=== PATIENT | female | born 1940 | race Caucasian/White ===

== ENCOUNTER 2018-05-01 08:50 | Day surgery (SDC) | payer MEDICARE, OTHER ==
[~2018-05-01 08:50] MED LIST: Sodium Chloride 0.9% 10 ML Syringe FLUSH PRN
[2018-05-01] MEDS: Lactated Ringers 1,000 ML IV SCH (10:04)
[2018-05-01] MEDS ORDERED: Propofol 200 MG/20 ML SDV ONE ×3 (10:33→11:33)
[2018-05-01] MEDS ORDERED: Midazolam 1 MG/ML 2 ML SDV ONE ×2 (10:33→10:34)
[2018-05-01] MEDS ORDERED: fentaNYL 100 MCG/2 ML SDV ONE ×2 (10:33→10:34)
--- NOTE | 2018-05-01 10:37 | PCM.PN ---
- General Info Date of Service: 05/01/18 - Review of Systems Systems Review Comment:: 77-year-old female comes today for colonoscopy.She says her last colonoscopy was about 15 years ago. She denies any recent rectal bleeding or change in bowel habits. She does admit that her mother had colon polyps.The patient is medically stable to proceed today. Her recent history and physical is reviewed and there is no significant changes. I discussed the proposed colonoscopy with the patient. Risks such as but not limited to bleeding and GI injury reviewed. She appears to understand and agrees to proceed. - Patient Data Vitals - Most Recent: Last Vital Signs Temp 96.2 F 05/01/18 10:03 Pulse 83 05/01/18 10:03 Resp 18 05/01/18 10:03 BP 130/64 05/01/18 10:03 Pulse Ox 100 05/01/18 10:03 Weight - Most Recent: 95.254 kg Med Orders - Current: Current Medications Lactated Ringer's (Ringers, Lactated) 1,000 mls @ 125 mls/hr IV ASDIRECTED TUAN Last Admin: 05/01/18 10:04 Dose: 125 mls/hr Sodium Chloride (Saline Flush) 10 ml FLUSH ASDIRECTED PRN PRN Reason: Keep Vein Open - Problem List Review Problem List Initiated/Reviewed/Updated: Yes - Assessment Assessment:: colon cancer screening - Plan Plan:: Colonoscopy
--- NOTE | 2018-05-01 11:34 | PCM.OPNOTE ---
- General Post-Op/Procedure Note Date of Surgery/Procedure: 05/01/18 Operative Procedure(s): Colonoscopy Findings: Moderate Sigmoid Diverticulosis Tortuous Colon Pre Op Diagnosis: Colon Cancer Screening Post-Op Diagnosis: Diverticulosis Anesthesia Technique: MAC Primary Surgeon: Elan Disla Pathology: none Output, Urine Amount: 0 EBL in mLs: 0 Complications: None Condition: Good
--- NOTE | 2018-05-01 14:08 | OR ---
Date of Procedure: 05/01/2018 PREOPERATIVE DIAGNOSIS: Colon cancer screening. POSTOPERATIVE DIAGNOSIS: Diverticulosis. OPERATIONS PERFORMED: Colonoscopy. INDICATIONS FOR SURGERY: This 77-year-old female comes for a screening colonoscopy. It has been many years since her last colon exam. FINDINGS: The patient has a [id number] degree of sigmoid diverticulosis. This does not appear acutely inflamed or otherwise complicated. The patient's colon was otherwise tortuous, but normal. DESCRIPTION OF PROCEDURE: The patient was taken to the operating room. She was given intravenous sedation, and with her in the left lateral decubitus position, digital rectal exam was performed showing no rectal masses. The Olympus colonoscope was inserted into the rectum. Retroflexed examination of the rectal canal was performed. The scope was then carefully advanced under direct visualization through the entire length of the colon until the cecum was reached. This was somewhat difficult because of the tortuosity of the colon and it did require hand pressure and placing the patient in the supine position, but eventually the cecum was able to be entered and fully examined. The appendiceal orifice and ileocecal valve were identified. The light was also noted to transilluminate the abdominal wall in the right lower quadrant. After examining the cecum, the scope was slowly withdrawn sequentially re-examining the colonic segments until the entire colon and rectum had been fully examined. The scope was removed and the patient was taken from the operating room in satisfactory condition. ESTIMATED BLOOD LOSS: Zero. COMPLICATIONS: None. PROGNOSIS: Good. ANALY Disla MD /[id number]
== END 2018-05-01 12:47 | disposition home or self-care (01) ==
LOC: LL.SDS 08:50
PROVIDERS: ATTEND Surgery
DX: Z12.11 Encounter for screening for malignant neoplasm of colon (principal); K57.30 Diverticulosis of large intestine without perforation or abscess without bleeding; K59.00 Constipation, unspecified; I10 Essential (primary) hypertension; F32.9 Major depressive disorder, single episode, unspecified; E78.5 Hyperlipidemia, unspecified; E55.9 Vitamin D deficiency, unspecified; Z79.899 Other long term (current) drug therapy; Z88.5 Allergy status to narcotic agent
CPT/HCPCS: J2250; J2704; J3010; J7120

== ENCOUNTER 2021-02-02 11:33 | Day surgery (SDC) | payer MEDICARE, OTHER ==
[~2021-02-02 11:33] MED LIST changes: +Lactated Ringers 1,000 ML IV SCH; +Propofol 200 MG/20 ML SDV ONE
--- NOTE | 2021-02-02 12:35 | PCM.PN ---
- General Info Date of Service: 02/02/21 - Review of Systems Systems Review Comment:: 80-year-old female referred for EGD. She does have a history of GERD-like symptoms and has a known history of eosinophilic esophagitis noted on previous EGD. She is medically stable to proceed with an EGD today I have discussed the proposed EGD with the patient reviewed with her indications and risks and she agrees to proceed. Her recent history and physical is reviewed and no significant changes are noted. - Patient Data Vitals - Most Recent: Last Vital Signs Temp 98.1 F 02/02/21 12:09 Pulse 71 02/02/21 12:09 Resp 18 02/02/21 12:09 BP 149/79 H 02/02/21 12:09 Pulse Ox 96 02/02/21 12:09 Weight - Most Recent: 96.615 kg Med Orders - Current: Current Medications Lactated Ringer's (Ringers, Lactated) 1,000 mls @ 125 mls/hr IV ASDIRECTED TUAN Last Admin: 02/02/21 12:06 Dose: 125 mls/hr Documented by: Sodium Chloride (Sodium Chloride 0.9% 10 Ml Syringe) 10 ml FLUSH ASDIRECTED PRN PRN Reason: Keep Vein Open Discontinued Medications Propofol (Propofol 200 Mg/20 Ml Sdv) Confirm Administered Dose 400 mg .ROUTE .STK-MED ONE Stop: 02/02/21 08:42 Sepsis Event Note - Focused Exam Vital Signs: Vital Signs Temp Pulse Resp BP Pulse Ox 02/02/21 12:09 98.1 F 71 18 149/79 H 96 - Problem List Review Problem List Initiated/Reviewed/Updated: Yes - Assessment Assessment:: GERD - Plan Plan:: EGD
[2021-02-02] MEDS ORDERED: Glycopyrrolate 0.2 MG/ML SDV ONE (12:37)
[2021-02-02] MEDS ORDERED: Propofol 200 MG/20 ML SDV ONE (12:37)
[2021-02-02] MEDS ORDERED: Lidocaine 2% 5 ML SDV ONE (12:37)
--- NOTE | 2021-02-02 13:04 | PCM.OPNOTE ---
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 Mckinney's Esophagus Anesthesia Technique: MAC Primary Surgeon: Elan Disla Pathology: biopsies of gastric antrum and esophagus EBL in mLs: 5 Complications: None Condition: Good
--- NOTE | 2021-02-02 13:53 | OR ---
Date of Procedure: 02/02/2021 PREOPERATIVE DIAGNOSIS: Gastroesophageal reflux disease. POSTOPERATIVE DIAGNOSES: 1. Long-segment Mckinney esophagus. 2. Hiatal hernia. OPERATION PERFORMED: Esophagogastroduodenoscopy with biopsy. INDICATIONS FOR SURGERY: This 80-year-old female has been having GERD-like symptoms. She has had a previous EGD but is referred for this exam again because of continued symptoms. FINDINGS: In the distal esophagus, the patient has visible signs of inflammation and mucosal changes consistent with Mckinney's esophagus of approximately 6 cm in length extending from the GE junction, which was estimated to be at 37 cm from the incisors to approximately 31 cm from the incisors. There was some acute inflammation and exudate, although no ulceration or stricturing noted in this area. The more proximal esophagus appeared normal. The patient also has a small to medium-sized hiatal hernia. The gastric mucosa and duodenum otherwise appear normal. DESCRIPTION OF PROCEDURE: The patient was taken to the operating room. She was given intravenous sedation, and with her in the left lateral decubitus position, the Olympus gastroscope was advanced through mouth guard into the oral cavity. Under direct visualization, the scope was advanced through the oropharynx and then down through the esophagus, stomach, and into the duodenum, where examination to the third portion was performed. After examining the duodenum, the scope was withdrawn back into the stomach where full examination including retroflexed examination of the fundus was performed. Random biopsies of the antrum were taken to rule out H. pylori. The GE junction and distal esophagus were then carefully examined. With findings consistent with a long-segment Mckinney esophagus, biopsies were taken of this area at multiple levels to rule out dysplasia. After this had been completed, the exam was finished and the scope was removed. The patient was then taken from the operating room in satisfactory condition. ESTIMATED BLOOD LOSS: 5 mL. COMPLICATIONS: None. PROGNOSIS: Good. ANALY Disla MD /[id number]
== END 2021-02-02 14:09 | disposition home or self-care (01) ==
LOC: LL.SDS 11:33
PROVIDERS: ATTEND Surgery
DX: K29.50 Unspecified chronic gastritis without bleeding (principal); K21.00 Gastro-esophageal reflux disease with esophagitis, without bleeding; K22.10 Ulcer of esophagus without bleeding; K22.70 Barrett's esophagus without dysplasia; K44.9 Diaphragmatic hernia without obstruction or gangrene; I10 Essential (primary) hypertension; E78.2 Mixed hyperlipidemia; J44.9 Chronic obstructive pulmonary disease, unspecified; R35.0 Frequency of micturition; R35.1 Nocturia; Z01.812 Encounter for preprocedural laboratory examination; Z20.822 Contact with and (suspected) exposure to COVID-19; Z79.899 Other long term (current) drug therapy; Z88.8 Allergy status to other drugs, medicaments and biological substances; Z88.5 Allergy status to narcotic agent; E66.9 Obesity, unspecified; Z98.890 Other specified postprocedural states
CPT/HCPCS: 00731; 88305; 88342; J2704; J3490; J7120; U0002

== ENCOUNTER 2021-05-10 06:41 | Emergency (ER) | payer MEDICARE, OTHER ==
[2021-05-10] MEDS ORDERED: Sodium Chloride 0.9% 10 ML Syringe FLUSH PRN (07:11)
[2021-05-10] MEDS ORDERED: Diphtheria,Pertussis(Acell),Tetanus Vaccine 0.5 ML Syringe IM ONE (07:12)
--- NOTE | 2021-05-10 07:24 | EDM.PDOC ---
ED HPI GENERAL MEDICAL PROBLEM - General Chief Complaint: Laceration Stated Complaint: left knee laceration Time Seen by Provider: 05/10/21 06:55 Source of Information: Reports: Patient, RN, RN Notes Reviewed History Limitations: Reports: No Limitations - History of Present Illness INITIAL COMMENTS - FREE TEXT/NARRATIVE: Pt. presents to ER with complaints of injury to L knee. Pt. states that she was walking her dog when she fell, landing on her knee on a metal grate. Pt. states that she did not strike her head. She is not currently on any blood thinners. Pt. states that she is not experiencing any neck pain. It was a mechanical fall; she denies having any chest pain, shortness of breath, lightheadedness, or palpitation prior to the fall. Pt. is able to bear weight on the extremity. She was able to get up off the ground, walk home, and she drove herself to the ER. She states that she noticed some "spurting" from the injury when she was exploring it. - Related Data Allergies Allergy/AdvReac Type Severity Reaction Status Date / Time hydrocodone Allergy UNKNOWN Verified 02/02/21 11:57 hydromorphone [From Dilaudid] Allergy UNKNOWN Verified 02/02/21 11:57 hydroxyzine Allergy Nausea Verified 02/02/21 11:57 Home Meds: Home Meds Melatonin 3 mg PO BEDTIME PRN 05/01/18 [History] atorvaSTATin [Lipitor] 40 mg PO Q2D 05/01/18 [History] Cholecalciferol (Vitamin D3) [Vitamin D3] 5,000 unit PO DAILY 02/01/21 [History] Ibuprofen 200 mg PO Q6H PRN 02/01/21 [History] Magnesium Oxide [Magnesium] 500 mg PO DAILY 02/01/21 [History] Risedronate Sodium [Actonel] 35 mg PO WEEKLY 02/02/21 [History] Multivitamin with Minerals [Multiple Vitamin] 1 tab PO DAILY 05/10/21 [History] Venlafaxine [Effexor XR] 150 mg PO DAILY 05/10/21 [History] lisinopriL [Lisinopril] 40 mg PO DAILY 05/10/21 [History] Past Medical History HEENT History: Reports: Cataract 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 Cardiovascular History: Reports: High Cholesterol, Hypertension Respiratory History: Reports: None Gastrointestinal History: Reports: Colon Polyp Other Gastrointestinal History: eosinophilic esophagitis Musculoskeletal History: Reports: None Other Musculoskeletal History: osteopenia Neurological History: Reports: None Psychiatric History: Reports: Anxiety, Depression Endocrine/Metabolic History: Reports: Vitamin D Deficiency Other Endocrine/Metabolic History: dysthymic disorder Hematologic History: Reports: None Immunologic History: Reports: None Oncologic (Cancer) History: Reports: None Dermatologic History: Reports: None Other Dermatologic History: shingles - Infectious Disease History Infectious Disease History: Reports: Shingles - Past Surgical History GI Surgical History: Reports: Colonoscopy, EGD Female Surgical History: Reports: Hysterectomy, Other (See Below) Other Female Surgeries/Procedures: Bladder reattachment surgery Social & Family History - Tobacco Use Tobacco Use Status *Q: Never Tobacco User Second Hand Smoke Exposure: No - Caffeine Use Caffeine Use: Reports: Coffee - Recreational Drug Use Recreational Drug Use: No ED ROS GENERAL - Review of Systems Review Of Systems: Comprehensive ROS is negative, except as noted in HPI. ED EXAM, SKIN/RASH Exam: See Below Exam Limited By: No Limitations General Appearance: Alert, WD/WN, No Apparent Distress Eye Exam: Bilateral Eye: EOMI, PERRL Head: Atraumatic, Normocephalic Neck: Normal Inspection, Supple, Non-Tender, Full Range of Motion Extremities: Normal Range of Motion, No Pedal Edema, Normal Capillary Refill, Other (Approx. 9 cm total length laceration to L anteriolateral knee. The laceration starts shallow on the medial portion of the the injury and extends very deeply toward the deeper structures of the knee forming a pocket that extends inferiorly into lower leg.). No: Mottled, Pallor Neurological: Alert, Oriented, CN II-XII Intact, Normal Cognition, Normal Reflexes, No Motor/Sensory Deficits Psychiatric: Normal Affect, Normal Mood Skin: Warm, Dry, Intact, Normal Color, No Rash Course - Vital Signs Last Recorded V/S: Last Vital Signs Temp 36.8 C 05/10/21 06:43 Pulse 81 05/10/21 07:14 Resp 16 05/10/21 07:14 BP 154/89 H 05/10/21 07:14 Pulse Ox 98 05/10/21 07:14 - Orders/Labs/Meds Orders: Active Orders 24 hr Category Date Time Status Peripheral IV Care [RC] . DIRECTED Care 05/10/21 07:11 Ordered Vaccines to be Administered [RC] PER UNIT ROUTINE Care 05/10/21 07:12 Ordered Knee 3V Lt [CR] Stat Exams 05/10/21 07:10 Ordered Sodium Chloride 0.9% [Saline Flush] Med 05/10/21 07:11 Ordered 10 ml FLUSH ASDIRECTED PRN Peripheral IV Insertion Adult [OM.PC] Routine Oth 05/10/21 07:11 Ordered Medication Orders Sodium Chloride (Sodium Chloride 0.9% 10 Ml Syringe) 10 ml FLUSH ASDIRECTED PRN PRN Reason: Keep Vein Open Meds: Medications Generic Name Dose Route Start Last Admin Trade Name Freq PRN Reason Stop Dose Admin Sodium Chloride 10 ml 05/10/21 07:11 Sodium Chloride 0.9% 10 Ml Syringe FLUSH ASDIRECTED PRN Keep Vein Open Discontinued Medications Generic Name Dose Route Start Last Admin Trade Name Freq PRN Reason Stop Dose Admin Cefazolin Sodium 1 gm 05/10/21 07:38 Cefazolin 1 Gm Vial IVPUSH 05/10/21 07:39 ONETIME ONE Diphtheria/Tetanus/Acell Pertussis 0.5 ml 05/10/21 07:12 05/10/21 07:24 Diphtheria,Pertussis(Acell),Tetanus Vaccine 0.5 Ml Syringe IM 05/10/21 07:13 0.5 ml .ONCE ONE Administration Lidocaine HCl 15 ml 05/10/21 06:58 05/10/21 07:03 Lidocaine 1% 5 Ml Sdv INJECT 05/10/21 06:59 15 ml ONETIME ONE Administration - Radiology Interpretation Free Text/Narrative:: No obvious deformity noted on 3 view knee radiographs Departure - Departure Time of Disposition: 07:40 Disposition: Home, Self-Care 01 Clinical Impression: Laceration - Discharge Information Referrals: Rekha Peña NP [Primary Care Provider] - Forms: ED Department Discharge Sepsis Event Note (ED) - Evaluation Sepsis Screening Result: No Definite Risk - Focused Exam Vital Signs: Vital Signs Temp Pulse Resp BP Pulse Ox 05/10/21 07:14 81 16 154/89 H 98 05/10/21 06:43 36.8 C 86 16 157/78 H 99 - Problem List Review Problem List Initiated/Reviewed/Updated: Yes - My Orders Last 24 Hours: My Active Orders 05/10/21 07:10 Knee 3V Lt [CR] Stat 05/10/21 07:11 Peripheral IV Care [RC] . DIRECTED Sodium Chloride 0.9% [Saline Flush] 10 ml FLUSH ASDIRECTED PRN Peripheral IV Insertion Adult [OM.PC] Routine 05/10/21 07:12 Vaccines to be Administered [RC] PER UNIT ROUTINE - Assessment/Plan Last 24 Hours: My Active Orders 05/10/21 07:10 Knee 3V Lt [CR] Stat 05/10/21 07:11 Peripheral IV Care [RC] . DIRECTED Sodium Chloride 0.9% [Saline Flush] 10 ml FLUSH ASDIRECTED PRN Peripheral IV Insertion Adult [OM.PC] Routine 05/10/21 07:12 Vaccines to be Administered [RC] PER UNIT ROUTINE Plan: The laceration was explored. It is complex and will need a washout. This facility does not have surgical capability. [facility] call was contacted. Pt. was accepted by Dr. Nagel in ER. IV started. Pt. was given a gram of ancef IV. Tetanus was updated. Moist dressing applied for transport. Pt. will be transported by daughter. All questions were answered.
[2021-05-10] MEDS ORDERED: ceFAZolin 1 GM Vial IVPUSH ONE (07:38)
== END 2021-05-10 08:05 | disposition home or self-care (01) ==
LOC: LL.ED 06:41
DX: S81.012A Laceration without foreign body, left knee, initial encounter (principal); E78.00 Pure hypercholesterolemia, unspecified; I10 Essential (primary) hypertension; Z79.899 Other long term (current) drug therapy; Z88.5 Allergy status to narcotic agent; Z23 Encounter for immunization; W18.39XA Other fall on same level, initial encounter; W26.8XXA Contact with other sharp object(s), not elsewhere classified, initial encounter
CPT/HCPCS: 73562-LT; 90471; 90715; 96374; 99284-25; J0690

== ENCOUNTER 2021-09-09 08:38 | Emergency (ER) | payer MEDICARE, OTHER ==
--- NOTE | 2021-09-09 09:42 | EDM.PDOC ---
ED HPI GENERAL MEDICAL PROBLEM - General Chief Complaint: Respiratory Problem Stated Complaint: Cough Time Seen by Provider: 09/09/21 08:50 Source of Information: Reports: Patient History Limitations: Reports: No Limitations - History of Present Illness INITIAL COMMENTS - FREE TEXT/NARRATIVE: 6 day history of not feeling well. Started initially as dry cough. Over next 24-48 hours developed sinus congestion, sore throat. No unusual sputum production. No fevers. No GI changes. Denies ear pain/PORTILLO. No body aches. Has decreased appetite. Negative Covid test earlier this week. Symptoms are all chest/sinus/throat in nature. - Related Data Allergies Allergy/AdvReac Type Severity Reaction Status Date / Time hydrocodone Allergy UNKNOWN Verified 02/02/21 11:57 hydromorphone [From Dilaudid] Allergy UNKNOWN Verified 02/02/21 11:57 hydroxyzine Allergy Nausea Verified 02/02/21 11:57 Home Meds: Home Meds Melatonin 3 mg PO BEDTIME PRN 05/01/18 [History] atorvaSTATin [Lipitor] 40 mg PO Q2D 05/01/18 [History] Cholecalciferol (Vitamin D3) [Vitamin D3] 5,000 unit PO DAILY 02/01/21 [History] Ibuprofen 200 mg PO Q6H PRN 02/01/21 [History] Magnesium Oxide [Magnesium] 500 mg PO DAILY 02/01/21 [History] Risedronate Sodium [Actonel] 35 mg PO WEEKLY 02/02/21 [History] Multivitamin with Minerals [Multiple Vitamin] 1 tab PO DAILY 05/10/21 [History] Venlafaxine [Effexor XR] 150 mg PO DAILY 05/10/21 [History] lisinopriL [Lisinopril] 40 mg PO DAILY 05/10/21 [History] predniSONE [Prednisone] 20 mg PO DAILY #5 tablet 09/09/21 [Rx] Past Medical History HEENT History: Reports: Cataract 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 Cardiovascular History: Reports: High Cholesterol, Hypertension Respiratory History: Reports: None Gastrointestinal History: Reports: Colon Polyp Other Gastrointestinal History: eosinophilic esophagitis Musculoskeletal History: Reports: None Other Musculoskeletal History: osteopenia Neurological History: Reports: None Psychiatric History: Reports: Anxiety, Depression Endocrine/Metabolic History: Reports: Vitamin D Deficiency Other Endocrine/Metabolic History: dysthymic disorder Hematologic History: Reports: None Immunologic History: Reports: None Oncologic (Cancer) History: Reports: None Dermatologic History: Reports: None Other Dermatologic History: shingles - Infectious Disease History Infectious Disease History: Reports: Shingles - Past Surgical History GI Surgical History: Reports: Colonoscopy, EGD Female Surgical History: Reports: Hysterectomy, Other (See Below) Other Female Surgeries/Procedures: Bladder reattachment surgery Social & Family History - Caffeine Use Caffeine Use: Reports: Coffee ED ROS GENERAL - Review of Systems Review Of Systems: See Below Constitutional: Reports: Malaise, Decreased Appetite. Denies: Fever, Chills, Night Sweats, Diaphoresis HEENT: Reports: Rhinitis, Sinus Problem, Throat Pain. Denies: Ear Pain, Vision Change Respiratory: Reports: Shortness of Breath, Cough. Denies: Wheezing, Pleuritic Chest Pain, Sputum, Hemoptysis Cardiovascular: Reports: No Symptoms Endocrine: Reports: No Symptoms GI/Abdominal: Reports: No Symptoms : Reports: No Symptoms Musculoskeletal: Reports: Other (no acute changes from baseline) Skin: Reports: No Symptoms Neurological: Reports: No Symptoms Psychiatric: Reports: No Symptoms Hematologic/Lymphatic: Reports: No Symptoms ED EXAM, GENERAL - Physical Exam Exam: See Below Exam Limited By: No Limitations General Appearance: Alert, WD/WN, No Apparent Distress Eye Exam: Bilateral Eye: EOMI, PERRL Ears: Normal External Exam, Normal Canal, Hearing Grossly Normal Nose: Normal Inspection Throat/Mouth: Normal Inspection, Normal Lips, Normal Oropharynx, Normal Voice, No Airway Compromise Head: Atraumatic, Normocephalic Neck: Supple, Non-Tender, Full Range of Motion Respiratory/Chest: No Respiratory Distress, Lungs Clear, Normal Breath Sounds, No Accessory Muscle Use Cardiovascular: Normal Peripheral Pulses, No Murmur, Tachycardia GI/Abdominal: Normal Bowel Sounds, Soft, Non-Tender, No Distention (Female) Exam: Deferred Rectal (Female) Exam: Deferred Back Exam: Normal Inspection. No: CVA Tenderness (L), CVA Tenderness (R), Muscle Spasm, Paraspinal Tenderness, Vertebral Tenderness Extremities: Normal Inspection, Normal Capillary Refill Neurological: Alert, Oriented, CN II-XII Intact, Normal Cognition, Normal Gait, No Motor/Sensory Deficits Psychiatric: Normal Affect, Normal Mood Skin Exam: Warm, Dry, Intact, Normal Color Course - Vital Signs Last Recorded V/S: Last Vital Signs Temp 37.2 C 09/09/21 09:00 Pulse 108 H 09/09/21 09:00 Resp 16 09/09/21 09:00 BP 154/74 H 09/09/21 09:00 Pulse Ox 98 09/09/21 09:00 - Orders/Labs/Meds Orders: Active Orders 24 hr Category Date Time Status Chest 2V [CR] Stat Exams 09/09/21 09:29 Taken CULTURE STREP A CONFIRMATION [RM] Stat Lab 09/09/21 09:20 Results STREP SCRN A RAPID W CULT CONF [RM] Stat Lab 09/09/21 09:20 Results UA W/MICROSCOPIC [URIN] Stat Lab 09/09/21 09:28 Ordered Sodium Chloride 0.9% [Saline Flush] Med 09/09/21 11:35 Active 10 ml FLUSH ASDIRECTED PRN Isolation [COMM] Routine Oth 09/09/21 08:43 Active Isolation [COMM] Routine Oth 09/09/21 09:48 Active Medication Orders Sodium Chloride (Sodium Chloride 0.9% 10 Ml Syringe) 10 ml FLUSH ASDIRECTED PRN PRN Reason: Keep Vein Open Last Admin: 09/09/21 11:35 Dose: 10 ml Documented by: Labs: Laboratory Tests 09/09/21 09/09/21 09/09/21 Range/Units 08:40 09:22 09:40 WBC 6.3 (4.0-10.2) K/uL RBC 4.51 (3.77-5.09) M/uL Hgb 13.7 (11.7-15.5) g/dL Hct 42.8 (34.0-46.0) % MCV 94.9 (84.0-98.0) fL MCH 30.4 (28.2-33.3) pg MCHC 32.0 (31.7-36.0) g/dL RDW 13.7 (11.2-14.1) % Plt Count 324 (150-350) K/uL Neut % (Auto) 76.7 (45.0-80.0) % Lymph % (Auto) 10.4 (10.0-50.0) % [place] % (Auto) 10.4 (2.0-14.0) % Eos % (Auto) 2.2 (0.0-5.0) % Baso % (Auto) 0.3 (0.0-2.0) % Neut # (Auto) 4.86 (1.40-7.00) K/uL Lymph # (Auto) 0.66 (0.50-3.50) K/uL [place] # (Auto) 0.66 (0.00-1.00) K/uL Eos # (Auto) 0.14 (0.00-0.50) K/uL Baso # (Auto) 0.02 (0.00-0.20) K/uL D-Dimer, Quantitative (0-400) ng/mL Sodium (136-145) mmol/L Potassium (3.5-5.1) mmol/L Chloride (98-107) mmol/L Carbon Dioxide (21.0-32.0) mmol/L Anion Gap (7-15) meq/L BUN (7-18) mg/dL Creatinine (0.51-1.17) mg/dL Est Cr Clr Drug Dosing Estimated GFR (MDRD) mL/min Glucose (70-99) mg/dL Lactic Acid (0.4-2.0) mmol/L Calcium (8.5-10.1) mg/dL Magnesium (1.8-2.4) mg/dL Total Bilirubin (0.2-1.0) mg/dL AST (15-37) U/L ALT (12-78) U/L Alkaline Phosphatase (46-116) IU/L NT-Pro-B Natriuret Pep (0-125) pg/mL Total Protein (6.4-8.2) g/dL Albumin (3.4-5.0) g/dL SARS-CoV-2 RNA (KRISTEL) Negative (NEGATIVE) SARS-CoV-2 Ag (Rapid) Negative (NEGATIVE) 09/09/21 09/09/21 09/09/21 Range/Units 09:40 09:40 09:40 WBC (4.0-10.2) K/uL RBC (3.77-5.09) M/uL Hgb (11.7-15.5) g/dL Hct (34.0-46.0) % MCV (84.0-98.0) fL MCH (28.2-33.3) pg MCHC (31.7-36.0) g/dL RDW (11.2-14.1) % Plt Count (150-350) K/uL Neut % (Auto) (45.0-80.0) % Lymph % (Auto) (10.0-50.0) % [place] % (Auto) (2.0-14.0) % Eos % (Auto) (0.0-5.0) % Baso % (Auto) (0.0-2.0) % Neut # (Auto) (1.40-7.00) K/uL Lymph # (Auto) (0.50-3.50) K/uL [place] # (Auto) (0.00-1.00) K/uL Eos # (Auto) (0.00-0.50) K/uL Baso # (Auto) (0.00-0.20) K/uL D-Dimer, Quantitative 328 (0-400) ng/mL Sodium 142 (136-145) mmol/L Potassium 4.1 (3.5-5.1) mmol/L Chloride 108 H (98-107) mmol/L Carbon Dioxide 23.6 (21.0-32.0) mmol/L Anion Gap 14.5 (7-15) meq/L BUN 13 (7-18) mg/dL Creatinine 0.79 (0.51-1.17) mg/dL Est Cr Clr Drug Dosing TNP Estimated GFR (MDRD) > 60 mL/min Glucose 108 H (70-99) mg/dL Lactic Acid 1.2 (0.4-2.0) mmol/L Calcium 8.9 (8.5-10.1) mg/dL Magnesium 2.1 (1.8-2.4) mg/dL Total Bilirubin 0.2 (0.2-1.0) mg/dL AST 18 (15-37) U/L ALT 35 (12-78) U/L Alkaline Phosphatase 61 (46-116) IU/L NT-Pro-B Natriuret Pep 311 H (0-125) pg/mL Total Protein 7.1 (6.4-8.2) g/dL Albumin 3.6 (3.4-5.0) g/dL SARS-CoV-2 RNA (KRISTEL) (NEGATIVE) SARS-CoV-2 Ag (Rapid) (NEGATIVE) Meds: Medications Generic Name Dose Route Start Last Admin Trade Name Chuck PRN Reason Stop Dose Admin Sodium Chloride 10 ml 09/09/21 11:35 09/09/21 11:35 Sodium Chloride 0.9% 10 Ml Syringe FLUSH 10 ml ASDIRECTED PRN Administration Keep Vein Open Discontinued Medications Generic Name Dose Route Start Last Admin Trade Name Chuck PRN Reason Stop Dose Admin Sodium Chloride 500 mls @ 500 mls/hr 09/09/21 09:45 09/09/21 10:02 Normal Saline IV 500 mls/hr .BOLUS TUAN Administration Methylprednisolone Sodium Succinate 125 mg 09/09/21 11:30 09/09/21 11:34 Methylprednisolone Sodium Succinate 125 Mg/2 Ml Sdv IVPUSH 09/09/21 11:31 125 mg ONETIME ONE Administration - Re-Assessments/Exams Free Text/Narrative Re-Assessment/Exam: 09/09/21 09:43 Covid/Influenza negative. Chest xray/labs/rapid strep added. Mildly tachycardic. 500ml NS ordered. 09/09/21 11:34 Chest xray showed no acute infiltrate. Labs overall unremarkable except for positive RSV. RSV results reviewed with patient. She has nebulizer at home for PRN use. Will give single dose of Solu-medrol in ER. Take home box of Albuterol Nebs. Precautions reviewed. To follow up as needed PRN worsening symptoms. Patient agreeable with plan. Departure - Departure Time of Disposition: 11:37 Disposition: Home, Self-Care 01 Condition: Good Clinical Impression: RSV (respiratory syncytial virus infection) - Discharge Information Prescriptions: predniSONE [Prednisone] 20 mg PO DAILY #5 tablet Instructions: Respiratory Syncytial Virus Infection, Adult Referrals: Rekha Peña NP [Primary Care Provider] - Forms: ED Department Discharge Additional Instructions: Give yourself regular nebs every 6-8 hours over the next week. If needed you can give them as often as every 4 hours. Return to ER if you have sudden worsening symptoms. Fill Prednisone prescription on Saturday if you still have sensation shortness of breath. Sepsis Event Note (ED) - Focused Exam Vital Signs: Vital Signs Temp Pulse Resp BP Pulse Ox 09/09/21 09:00 37.2 C 108 H 16 154/74 H 98 - My Orders Last 24 Hours: My Active Orders 09/09/21 08:43 Isolation [COMM] Routine 09/09/21 09:20 CULTURE STREP A CONFIRMATION [RM] Stat STREP SCRN A RAPID W CULT CONF [RM] Stat 09/09/21 09:28 UA W/MICROSCOPIC [URIN] Stat 09/09/21 09:29 Chest 2V [CR] Stat 09/09/21 09:48 Isolation [COMM] Routine 09/09/21 11:35 Sodium Chloride 0.9% [Saline Flush] 10 ml FLUSH ASDIRECTED PRN - Assessment/Plan Last 24 Hours: My Active Orders 09/09/21 08:43 Isolation [COMM] Routine 09/09/21 09:20 CULTURE STREP A CONFIRMATION [RM] Stat STREP SCRN A RAPID W CULT CONF [RM] Stat 09/09/21 09:28 UA W/MICROSCOPIC [URIN] Stat 09/09/21 09:29 Chest 2V [CR] Stat 09/09/21 09:48 Isolation [COMM] Routine 09/09/21 11:35 Sodium Chloride 0.9% [Saline Flush] 10 ml FLUSH ASDIRECTED PRN
[2021-09-09] MEDS ORDERED: Sodium Chloride 0.9% 500 ML IV SCH (09:45)
[2021-09-09 10:16] LABS: CHLORIDE,CL 108 mmol/L (98-107); SODIUM,NA 142 mmol/L (136-145)
[2021-09-09 10:18] LABS: ANION GAP 14.5 meq/L (7-15)
[2021-09-09] MEDS ORDERED: methylPREDNISolone Sodium Succinate 125 MG/2 ML SDV IVPUSH ONE (11:30)
[2021-09-09] MEDS ORDERED: Sodium Chloride 0.9% 10 ML Syringe FLUSH PRN (11:35)
== END 2021-09-09 11:50 | disposition home or self-care (01) ==
LOC: LL.ED 08:38
DX: R05.9 Cough, unspecified (principal); R09.81 Nasal congestion; J02.9 Acute pharyngitis, unspecified; B97.4 Respiratory syncytial virus as the cause of diseases classified elsewhere; E78.00 Pure hypercholesterolemia, unspecified; I10 Essential (primary) hypertension; Z88.5 Allergy status to narcotic agent; Z88.8 Allergy status to other drugs, medicaments and biological substances; Z79.899 Other long term (current) drug therapy; Z20.822 Contact with and (suspected) exposure to COVID-19
CPT/HCPCS: 36415; 71046; 80053; 83605; 83735; 83880; 85025; 85379; 87081; 87426; 87430; 87804; 87807; 96374; 99283-25; 99284; J2930; J7040; U0002

== ENCOUNTER 2022-03-15 09:43 | Day surgery (SDC) | payer MEDICARE, OTHER ==
[~2022-03-15 09:43] MED LIST changes: +Midazolam 1 MG/ML 2 ML SDV ONE
[2022-03-15] MEDS ORDERED: Midazolam 1 MG/ML 2 ML SDV ONE (11:28)
[2022-03-15] MEDS ORDERED: Propofol 200 MG/20 ML SDV ONE (11:28)
[2022-03-15] MEDS ORDERED: Lidocaine 2% 5 ML SDV ONE (11:28)
[2022-03-15] MEDS ORDERED: Glycopyrrolate 0.2 MG/ML SDV ONE (11:28)
== END 2022-03-15 13:02 | disposition home or self-care (01) ==
LOC: LL.SDS 09:43
PROVIDERS: ATTEND Surgery
DX: K29.50 Unspecified chronic gastritis without bleeding (principal); K22.70 Barrett's esophagus without dysplasia; K44.9 Diaphragmatic hernia without obstruction or gangrene; I10 Essential (primary) hypertension; E78.2 Mixed hyperlipidemia; R35.1 Nocturia; R35.0 Frequency of micturition; Z88.5 Allergy status to narcotic agent; Z88.6 Allergy status to analgesic agent; Z79.899 Other long term (current) drug therapy
CPT/HCPCS: 00731; 88305; 88342; J2250; J2704; J3490; J7120

== ENCOUNTER 2022-06-23 11:36 | Emergency (ER) | payer MEDICARE, OTHER | END 2022-06-23 14:30 | disposition home or self-care (01) | LOC: LL.ED 11:36 | DX: J06.9 Acute upper respiratory infection, unspecified (principal); E78.00 Pure hypercholesterolemia, unspecified; I10 Essential (primary) hypertension; K21.9 Gastro-esophageal reflux disease without esophagitis; Z88.5 Allergy status to narcotic agent; Z79.899 Other long term (current) drug therapy; Z79.82 Long term (current) use of aspirin; Z20.822 Contact with and (suspected) exposure to COVID-19 | CPT/HCPCS: 87081; 87430; 99283; U0002 ==

== ENCOUNTER 2022-08-02 10:58 | Emergency (ER) | payer MEDICARE, OTHER ==
[2022-08-02 12:31] LABS: RESPIRATORY SYNCYTIAL VIR NAA NEGATIVE (NEGATIVE)
[2022-08-02 12:34] LABS: CORONAVIRUS COVID-19 NAA POSITIVE (NEGATIVE)
== END 2022-08-02 12:55 | disposition home or self-care (01) ==
LOC: LL.ED 10:58
DX: U07.1 COVID-19 (principal); E78.00 Pure hypercholesterolemia, unspecified; I10 Essential (primary) hypertension; Z88.5 Allergy status to narcotic agent; Z88.6 Allergy status to analgesic agent; Z88.8 Allergy status to other drugs, medicaments and biological substances; Z79.899 Other long term (current) drug therapy; Z90.710 Acquired absence of both cervix and uterus
CPT/HCPCS: 0241U; 71046; 87081; 87430; 99283; 99284

== ENCOUNTER 2023-04-15 07:13 | Emergency (ER) | payer MEDICARE, OTHER ==
[2023-04-15 08:20] LABS: CORONAVIRUS COVID-19 NAA NEGATIVE (NEGATIVE); INFLUENZA A NAA NEGATIVE (NEGATIVE); INFLUENZA B NAA NEGATIVE (NEGATIVE); RESPIRATORY SYNCYTIAL VIR NAA NEGATIVE (NEGATIVE)
== END 2023-04-15 08:57 | disposition home or self-care (01) ==
LOC: LL.ED 07:13
DX: J06.9 Acute upper respiratory infection, unspecified (principal); H66.93 Otitis media, unspecified, bilateral; E78.00 Pure hypercholesterolemia, unspecified; I10 Essential (primary) hypertension; J44.9 Chronic obstructive pulmonary disease, unspecified; Z79.82 Long term (current) use of aspirin; Z79.899 Other long term (current) drug therapy; Z88.5 Allergy status to narcotic agent; Z88.8 Allergy status to other drugs, medicaments and biological substances; Z20.822 Contact with and (suspected) exposure to COVID-19
CPT/HCPCS: 0241U; 99283

== ENCOUNTER 2024-05-02 06:37 | Emergency (ER) | payer MEDICARE, OTHER ==
[2024-05-02] MEDS: Lactated Ringers 1,000 ML IV ONE (07:40)
[2024-05-02 07:46] LABS: BASOPHILS ABSOLUTE AUTO 0.02 K/uL (0.00-0.20); BASOPHILS PERCENT AUTO 0.4 % (0.0-2.0); EOSINOPHILS ABSOLUTE AUTO 0.51 K/uL (0.00-0.50); EOSINOPHILS PERCENT AUTO 9.3 % (0.0-5.0); HEMATOCRIT 41.9 % (34.0-46.0); HEMOGLOBIN 13.2 g/dL (11.7-15.5); LYMPHOCYTES ABSOLUTE AUTO 0.86 K/uL (0.50-3.50); LYMPHOCYTES PERCENT AUTO 15.7 % (10.0-50.0); MEAN CORPUSCULAR HEMOGLOBIN 30.2 pg (28.2-33.3); MEAN CORPUSCULAR HGB CONC 31.5 g/dL (31.7-36.0); MEAN CORPUSCULAR VOLUME 95.9 fL (84.0-98.0); MONOCYTES ABSOLUTE AUTO 0.53 K/uL (0.00-1.00); MONOCYTES PERCENT AUTO 9.7 % (2.0-14.0); NEUTROPHILS ABSOLUTE AUTO 3.55 K/uL (1.40-7.00); NEUTROPHILS PERCENT AUTO 64.9 % (45.0-80.0); PLATELET COUNT,PLT 301 K/uL (150-350); RED BLOOD CELL COUNT 4.37 M/uL (3.77-5.09); RED CELL DISTRIBUTION WIDTH 13.8 % (11.2-14.1); WHITE BLOOD CELL COUNT,WBC 5.5 K/uL (4.0-10.2)
[2024-05-02] MEDS: Sodium Chloride 0.9% 10 ML Syringe FLUSH PRN (08:00)
[2024-05-02] MEDS: cefTRIAXone 2 GM Vial IVPUSH ONE (08:00)
[2024-05-02 08:07] LABS: CALCIUM 9.4 mg/dL (8.5-10.1); CREATININE 1.05 mg/dL (0.51-1.17); EST CRCL DRUG DOSING (CG) 33.23 mL/min; POTASSIUM,K 4.9 mmol/L (3.5-5.1)
[2024-05-02 09:18] LABS: APPEARANCE,URINE SLIGHTLY CLOUDY; BILIRUBIN,URINE NEGATIVE (NEGATIVE); COLOR,URINE LIGHT YELLOW; GLUCOSE,URINE NEGATIVE (NEGATIVE); KETONES,URINE NEGATIVE (NEGATIVE); LEUKOCYTE ESTERASE,URINE TRACE (NEGATIVE); NITRITE,URINE NEGATIVE (NEGATIVE); OCCULT BLOOD,URINE NEGATIVE (NEGATIVE); PROTEIN,URINE NEGATIVE (NEGATIVE); UROBILINOGEN,URINE 0.2 E.U./dL (0.2-1.0)
[2024-05-02 09:21] LABS: BACTERIA,URINE RARE /HPF (NONE TO FEW); EPITHELIAL CELLS,URINE FEW /LPF; RBC,URINE 0-5 /HPF; WBC,URINE 0-5 /HPF
[2024-05-02] MEDS: Take Home: Ondansetron 4 MG Tab.DIS, 5 Tab Pack PO ONE (10:01)
== END 2024-05-02 09:53 | disposition home or self-care (01) ==
LOC: MERGE 06:37 → LL.ED 06:37
DX: N39.0 Urinary tract infection, site not specified (principal); R06.02 Shortness of breath; R53.83 Other fatigue; Z88.5 Allergy status to narcotic agent; Z91.09 Other allergy status, other than to drugs and biological substances; Z88.8 Allergy status to other drugs, medicaments and biological substances; Z79.51 Long term (current) use of inhaled steroids; Z79.82 Long term (current) use of aspirin; Z79.899 Other long term (current) drug therapy
CPT/HCPCS: 36415; 71046; 80048; 81001; 83605; 84484; 85025; 93005; 96361; 96374; 99285; J0696; J7120; Q0162; J3490